=== PATIENT | female | born 1960 | race Two or more races ===

== ENCOUNTER → 2025-06-07 | Emergency (ER) | payer OTHER ==
[~2025-06-07] VITALS: Ht 170.2 cm; Wt 81.6 kg
[~2025-06-07] MED LIST: ACETAMINOPHEN 500 MG GEL..CAP PO ONE; CEFTRIAXONE SODIUM 2,000 MG VIAL ONE; CEFTRIAXONE SODIUM 2,000 MG in 0.9 % SODIUM CHLORIDE 100 ML IV ONE; INTESTINEX680 M1 PO; MONDOXYNE NL100 MG PO; MUPIROCIN15 GM TOP; PEPCID AC20 MG PO
[2025-06-07 21:10] LABS: BASO % 0.6 % (0.1-1.2); EOS # 0.07 (0.04-0.54); EOS % 1.4 % (0.7-7.0); LYMPH # 2.09 (1.18-3.74); LYMPH % 41.4 % (19.3-53.1); MEAN PLATELET VOLUME 9.60 fl (9.4-12.4); MONO # 0.51 (0.24-0.82); MONO % 10.1 % (4.7-12.5); NEUT # 2.34 (1.56-6.13); NEUT % 46.3 % (34.0-71.1); RED CELL DISTRIBUTION WIDTH 12.4 % (11.6-14.4)
[2025-06-07 21:20] LABS: ERYTHROCYTE SEDIMENTATION RATE 11 mm/hr (0-30)
[2025-06-07 21:55] LABS: ALT/SGPT 26 U/L (12-78); AST/SGOT 14 U/L (15-37); BILIRUBIN TOTAL 0.32 mg/dL (0.3-1.2); BUN CREA RATIO 39 (7.0-25.0); CREATININE SERUM 0.71 mg/dL (0.55-1.02); GFR 82.36; GLOBULINA 3.4 G/DL (2.4-3.5); GLUCOSE FASTING 86 mg/dL (65-100); OSMOLALITY SERUM 286 MOSM/KG (275-295)
== END | disposition home or self-care (01) ==
LOC: ER 16:50
PROVIDERS: General Practice
DX: L03.116 Cellulitis of left lower limb (principal)